=== PATIENT | male | born 1945 | race Caucasian/White ===

== ENCOUNTER → 2016-07-12 | Outpatient (CLI) | payer MEDICARE, BC ==
[~2016-07-12] MED LIST: ALDACTONE DPS25 MG PO; ASA CHILDREN'S81 MG PO; ATORVASTATIN CA40 MG PO; BRILINTA90 MG PO; CORDARONE DPS200 MG PO; COZAAR DPS25 MG PO; FLAGYL-DPS500 MG PO; FOLVITE-DPS1 MG PO; IMODIUM DPS2 MG PO; KLOR-CON M2020 ME1 PO; LASIX DPS80 MG PO; LIPITOR DPS40 MG PO; LOPRESSOR DPS50 MG PO; METOPROLOL TART25 MG PO; MIDODRINE HCL5 MG PO; NITROGLYCERIN0.4 MG SL; NITROSTAT0.4 MG SL; PROTONIX40 MG PO; THERA1 EACH PO; ZYLOPRIM-DPS100 MG PO
== END | disposition home or self-care (01) ==
LOC: THER.SSS 10:39 → EDSTATUS 10:43
DX: D64.9 Anemia, unspecified (principal)

== ENCOUNTER → 2016-07-26 | Outpatient (CLI) | payer MEDICARE, BC | END | disposition home or self-care (01) | LOC: THER.S 11:11 | DX: D64.9 Anemia, unspecified (principal); R31.9 Hematuria, unspecified ==

== ENCOUNTER → 2016-08-24 | Outpatient (CLI) | payer MEDICARE, BC | END | disposition home or self-care (01) | LOC: RAD.S 10:00 | DX: R22.9 Localized swelling, mass and lump, unspecified (principal); J90 Pleural effusion, not elsewhere classified; R91.8 Other nonspecific abnormal finding of lung field; I25.10 Atherosclerotic heart disease of native coronary artery without angina pectoris; I25.84 Coronary atherosclerosis due to calcified coronary lesion ==

== ENCOUNTER → 2016-08-25 | Outpatient (CLI) | payer MEDICARE, BC | END | disposition home or self-care (01) | LOC: RAD.S 10:00 → CARD 10:11 | DX: D50.9 Iron deficiency anemia, unspecified (principal); R91.1 Solitary pulmonary nodule ==

== ENCOUNTER 2016-09-24 09:01 | Inpatient (IN) | payer MEDICARE, BC ==
[~2016-09-24] VITALS: Ht 177.8 cm; Wt 95.4 kg
--- NOTE | ~2016-09-24 | ECH ---
Transthoracic Echocardiography Report (TTE) Demographics Patient Name TRICE SLAUGHTER Date of Study 09/27/2016 Patient Number [id number] Visit Number [id number] Date of 1945 Room Number 312 Accession Number [id number] Gender Male Age 71 year(s) Referring Joseline Vargas MD Vehicle Mechanic Roxanne Akers Physician King Dionte Hinds MD [facility] Physician Interpreting Mayco White MD Gambling Dealer Physician Supervising Ordering Physician King Dionte Hinds MD, MD/P Nurse Stress Laboratory Animal Care Veterinarian Conclusions Summary Technically adequate exam. The estimated left ventricular ejection fraction is 65%. The left atrium is mildly dilated by LA volume index measurement. Trivial tricuspid regurgitation by color Doppler. There is mild pulmonary hypertension. The pulmonary pressure (RVSP) is 45 mmHg. Trivial posterior pericardial effusion. Procedure Type of Study TTE procedure:Echo Complete SF. Procedure Date Date: 09/27/2016 Start: 10:26 Technical Quality: Adequate visualization Indications:Atrial fibrillation, Atrial Flutter, Syncope, Hypertension and Coronary artery disease. Additional Indications:History of stent Appropriate Use Criteria: 9 Height: 70 inches Weight: 220 pounds BSA: 2.17 m Rhythm: NSR HR: 82 bpm BP: 101/46 mmHg Allergies - No known allergies. M-Mode/2D Measurements LV Diastolic Dimension: 5.2 cm LV Systolic Dimension: 3.4 cm LV Septum Diastolic: 1.04 cm LV PW Diastolic: 0.9 cm AO Root Dimension: 3.55 cm Cardiac Output: 8.5 l/min LA Dimension: 5 cm Cardiac Index: 3.92 l/min*m RV Diastolic Dimension: 4.35 cm LA volume index: 36 ml/m Post Pericard Effusion: 0.5 cm LVOT: 2 cm LVOT VTI: 33 cm RV Base: 3.5 cm LV Stroke volume: 103.62 ml RV Mid: 2.1 cm LV Stroke volume index: 47.75 ml/m TAPSE: 3.5 cm TDI-S': 40 cm/s Doppler Measurements AV Peak Velocity: 1.77 m/s MV Peak E-Wave: 1.03 m/s AV Peak Gradient: 12.53 mmHg MV Peak A-Wave: 0.55 m/s AV Mean Gradient: 6.7 mmHg MV E/A Ratio: 1.87 LVOT Peak Velocity: 1.54 m/s AV Area (Continuity):2.66 cm MV Deceleration Time: 375 msec TR Velocity:3.18 m/s PV Peak Velocity: 1.99 m/s TR Gradient:40.45 mmHg PV Peak Gradient: 15.84 mmHg Estimated RAP:3 mmHg Estimated PASP: 43.45 mmHg Estimated RVSP: 43 mmHg A' Septal Velocity: 0.11 m/s E' Septal Velocity: 0.12 m/s A' Lateral Velocity: 0.13 m/s E' Lateral Velocity: 0.16 m/s RA Area: 10.68 cm Findings Left Ventricle Normal left ventricle size and function. Diastolic assessment reveals normal relaxation. Right Ventricle Normal right ventricle structure and function. Left Atrium The left atrium is mildly dilated by LA volume index measurement. Right Atrium Normal right atrial size. Mitral Valve Mild thickening of the mitral valve leaflets. Trivial mitral regurgitation by color Doppler. Aortic Valve The aortic valve is mildly sclerotic. Tricuspid Valve Normal tricuspid valve structure and function. Trivial tricuspid regurgitation by color Doppler. There is mild pulmonary hypertension. The pulmonary pressure (RVSP) is 45 mmHg. Pulmonic Valve The pulmonic valve is not well visualized. Mild pulmonic valve regurgitation by color Doppler. Pericardial Effusion Trivial posterior pericardial effusion. Miscellaneous Visualized portions of the aortic root and ascending aorta appear normal in size. Pleural Effusion No evidence of pleural effusion. Signature
--- NOTE | ~2016-09-24 | OR ---
ADMIT: 09/24/2016 RM/LOC: 312 [id number] [id number] [address] [facility] [address] [place] [phone] TRICE SLAUGHTER [address] [place] [address] Operative/Delivery Room Report SEX: M AGE: 71 : 1945 SURGERY DATE: 09/26/2016 SURGEON: Eddie Turcios MD PREOPERATIVE DIAGNOSIS: Upper gastrointestinal bleed. POSTOPERATIVE DIAGNOSIS: Bleeding esophageal varix. PROCEDURE: Esophagogastroduodenoscopy with band ligation of esophageal varices. ANESTHESIA: General. ESTIMATED BLOOD LOSS: Unknown, but extensive clot and old blood was evacuated from the stomach. DESCRIPTION OF PROCEDURE: The patient was taken to the operating room and placed supine on his OR table. General anesthesia was established with endotracheal intubation. The upper endoscope was advanced through the oropharynx into the esophagus without difficulty. There was blood in the esophagus. Scope was advanced to the stomach where there was a large quantity of blood and clot in the proximal stomach. The initial hour of the endoscopy was spent evacuating this in its entirety to get complete mucosal visualization of the stomach. The pylorus was intubated and the first and second portions of the duodenum appeared unremarkable. The scope was again withdrawn to the stomach. Inspection of the antrum, body, and fundus revealed no evidence for ulceration or gastric varices. The scope was withdrawn to the GE junction where the esophageal varix was noted and had an overlying ulceration with small amount of blood at the margin consistent with stigmata of recent bleed. Decision was made for rubber band ligation of this site. Instruments used for clot evacuation had been suction irrigation via the therapeutic endoscope as well as a Red Net evacuation of the clot. The scope was withdrawn and the band ligator applied to the scope. The scope was again advanced to the distal esophagus. The ulceration of the varix was identified, suctioned into the scope and rubber band ligation was performed. No bleeding was caused with firing of the band. The band was in good position below the ulceration. The scope was withdrawn and the procedure was terminated. The patient tolerated the procedure in critical condition and transferred to recovery. Eddie Turcios MD/ yamila JOB #: [id number] CC: Warren Trevizo, Attending Physician Warren Trevizo, Family Physician
--- NOTE | ~2016-09-24 | CO ---
ADMIT: 09/24/2016 RM/LOC: 312 [facility] MR#: [id number] [address] [address] TRICE SLAUGHTER [facility] [place] [address] Consultation SEX: M AGE: 71 : 1945 DATE OF CONSULTATION: 09/26/2016 ATTENDING PHYSICIAN: Warren Tervizo CONSULTING PHYSICIAN: Cody Triplett MD REASON FOR CONSULT: Narrow-complex tachycardia. HISTORY OF PRESENT ILLNESS: Mr. Slaughter is a 71-year-old gentleman with a history of coronary disease. He had a stent to his mid and distal right coronary artery right about a year ago in August 2015 for an acute coronary syndrome. He does not have any history of arrhythmias. He was hospitalized a couple days ago when he came to the hospital with a syncopal episode. Apparently, he was on his way to the bathroom when he passed out. Brought to the emergency room. He was mildly anemic. He was orthostatic. He had been having increasing confusion over the past 2 days. It sounds like he has had a recent diagnosis of multiple myeloma and has been receiving chemotherapy and it was thought that maybe his chemotherapy was contributing to some of his symptoms. He was pancytopenic. Today they were actually discussing the possibility of discharge, but he continued to be orthostatic and lightheaded. His hemoglobin at admission was 9.5, and this morning was down to 7.8, his platelet count was 10,000. He had a bloody stool. He was brought down for an EGD today. He was found to have esophageal varices and a significant amount of blood in his stomach. He underwent esophageal banding. Apparently he does have a history of GI bleeding. When he came back to the recovery area, he went into a wide-complex tachycardia. He was given low-dose metoprolol. There was no chest pain. He did not have palpitations. He may have been a little more lightheaded. I gave him metoprolol and his blood pressure did decrease transiently but then went back up. He continued to be tachycardic. Metoprolol was repeated. He was then given a dose of IV digoxin with no response. Review of the EKGs it appears that it is atrial flutter but currently despite all the interventions, he is running 170 beats a minute. PAST MEDICAL HISTORY: Illnesses Include hypertension, history of gastroesophageal reflux disease, proctitis, gout, he has had prostate cancer, more recently diagnosed with multiple myeloma and his coronary artery disease with previous stent to his right coronary artery. ALLERGIES: NO KNOWN MEDICAL ALLERGIES. HOME MEDICATIONS: Include: 1. Pantoprazole 40 daily. 2. Allopurinol 100 at bedtime. 3. Metoprolol 50 b.i.d. 4. Aspirin 325 daily. 5. Losartan 25 daily. 6. Atorvastatin 40 at bedtime. ADMIT: 09/24/2016 RM/LOC: 312 [facility] MR#: [id number] [address] [place] [phone] TRICE SLAUGHTER [address] [place] [address] Consultation SEX: M AGE: 71 : 1945 7. Nitrostat p.r.n. 8. Acyclovir 400 b.i.d. PAST SURGICAL HISTORY: Includes prostate surgery, inguinal hernia repair, and colon resection. FAMILY HISTORY: His mother had a stroke. There is no premature history of coronary disease. Apparently his father had a valve replacement. SOCIAL HISTORY: He is . Lives at home with his . He is retired. Previously he has admitted to routine alcohol use, but denies illicit drug use. REVIEW OF SYSTEMS: Unobtainable. PHYSICAL EXAMINATION: VITAL SIGNS: His blood pressure is currently 100/70 and O2 sats are 97% on room air. SKIN: Pale otherwise, mildly cool extremities. GENERAL: He is just waking up from anesthesia. He complains of mild dizziness. He answers my very simple questions but he is slow to respond. He is in the recovery area. EYES: Sclerae clear. No xanthelasmas. ENT: Oral mucosa is pink and moist. No jugular venous distention or carotid bruits. HEART: Tachycardic, sounds regular. I cannot appreciate any murmurs, rubs, or gallops. CHEST: Poor respiratory effort. I do not hear any specific areas of wheezes, rhonchi, or crackles. ABDOMEN: Mildly distended. Nontender to palpation. Bowel sounds do sound active. EXTREMITIES: Peripheral pulses palpable. No clubbing, cyanosis or edema. PSYCH: He is partially sedated. MUSCULOSKELETAL: No obvious bony abnormalities are noted. Could not assess gait. LABORATORY AND X-RAY DATA: Sodium is 137, potassium 3.7, creatinine 0.8, his glucose 246. INR is 1.44. White count 7.8, hemoglobin was 7.8 on the 3rd and was 9.4 this morning, white count 7.8, and platelet count 37,000. Chest x-ray showed normal heart size. No vascular congestion. A 12-lead EKG shows nonspecific intraventricular conduction delay. He was certainly in sinus during his hospitalization, now in tachycardia which I believe is atrial flutter. IMPRESSION: 1. Newly diagnosed atrial flutter and probably new onset. 2. Active gastrointestinal bleeding with esophageal varices. ADMIT: 09/24/2016 RM/LOC: 312 [facility] MR#: [id number] [facility] [address] [id number] LESLIEYING TRICE Allyson [address] [place] [address] Consultation SEX: M AGE: 71 : 1945 3. Multiple myeloma. 4. Coronary artery disease with previous stent to the right coronary artery. 5. History of alcohol abuse. RECOMMENDATIONS: So far, he has had little response to IV Lopressor. He is already given IV digoxin by the anesthesiologist. Just started a Cardizem drip. His blood pressure is marginal, currently 100/70. He remains lightheaded. I am going to give the Cardizem a little more time and if it is not effective, we will have to consider urgent cardioversion. He just finished an EGD showing diffuse blood and varices. There are certainly several factors contributing to his hypotension. Obviously he is not an anticoagulation candidate with his anemia and active bleeding. Cody Triplett MD/ yamila JOB #: [id number] CC: Warren Trevizo, Attending Physician Warren Trevizo, Family Physician
[~2016-09-24 09:01] MED LIST changes: -ALDACTONE DPS25 MG PO; -ATORVASTATIN CA40 MG PO; -CORDARONE DPS200 MG PO; -FLAGYL-DPS500 MG PO; -FOLVITE-DPS1 MG PO; -KLOR-CON M2020 ME1 PO; -LASIX DPS80 MG PO; -METOPROLOL TART25 MG PO; -MIDODRINE HCL5 MG PO
--- NOTE | 2016-09-27 07:54 | CO ---
ADMIT: 09/24/2016 RM/LOC: 312 [facility] MR#: [id number] [address] [address] NAVJOT SLAUGHTER [facility] [place] [address] Consultation SEX: M AGE: 71 : 1945 DATE OF CONSULTATION: 09/26/2016 ATTENDING PHYSICIAN: Warren Trevizo CONSULTING PHYSICIAN: Eddie Turcios MD HISTORY: This is a 71-year-old male seen in the ICU in consultation for Dr. Trevizo after episodes of hematemesis overnight. Navjot was admitted on September 24 with complaints of a syncopal episode at home. On initial admission, he did have evidence of pancytopenia, which was felt to be related to recent chemotherapy for multiple myeloma. His platelet count was 15,000 on admission and hemoglobin was 9.5. He has had some improvement in his orthostatic symptoms and was nearly discharged yesterday. He did however report a black and possibly bloody bowel movement yesterday. He was kept to monitor and indeed last night, then had an episode of hematemesis. He was transferred to the ICU. He has remained hemodynamically stable since that time. He did have another episode of bloody emesis with clot present this morning. He is receiving a second unit of packed red blood cells currently. He received platelets last night and his current platelet count is 40,000. He denies ever having a similar episode of bleeding. He does have history of alcoholic cirrhosis documented in the chart as well as esophageal varices documented in the chart. He is unaware of that. PAST MEDICAL HISTORY: 1. Multiple myeloma. 2. Chronic alcoholism with alcoholic cirrhosis. 3. Gout. 4. Hypertension. 5. Advanced colon polyps, requiring colectomy. 6. Prostate cancer. 7. Depression. CURRENT MEDICATIONS: Reviewed via the medication reconciliation. PAST SURGICAL HISTORY: Laparoscopic right colectomy, colonoscopy, and EGD remotely. SOCIAL HISTORY: Denies tobacco use. He does drink daily and has a long- standing history of that. REVIEW OF SYSTEMS: A 10-point review of systems is performed. Syncope, orthostatic hypotension, hematemesis, and bloody/black stool are documented above. The remainder of the 10-point review of systems is negative for recent change. FAMILY HISTORY: Noncontributory. PHYSICAL EXAMINATION: GENERAL: Navjot is alert, oriented, and in no acute distress currently. ADMIT: 09/24/2016 RM/LOC: 312 [facility] MR#: [id number] [address] [address] NAVJOT SLAUGHTER [address] [place] [address] Consultation SEX: M AGE: 71 : 1945 VITAL SIGNS: Stable. HEENT: Sclerae are pale. Pupils are equal and reactive. NECK: Supple. Trachea is midline. LUNGS: Clear bilaterally. HEART: Regular rate and rhythm without murmur. ABDOMEN: Soft, nontender without palpable mass. EXTREMITIES: Calves are soft bilaterally with no focal neurologic deficit. NEUROLOGIC: Cranial nerves are intact. LABORATORY STUDIES: INR of 1.44, total bilirubin of 1.8, AST of 66, ALT 72, white blood cell count of 7.8, hemoglobin of 9.4, and platelet count of 37. IMPRESSION: 1. Hematemesis with upper gastrointestinal bleed with history of alcoholic cirrhosis. 2. Thrombocytopenia, likely related to possibly the cirrhosis, but also recent treatment for multiple myeloma. 3. Coagulopathy related to cirrhosis. 4. Anemia related to acute blood loss on chronic anemia. PLAN: He is currently receiving proton pump inhibitor therapy in a drip form. Resuscitation with packed red blood cells and platelets has been performed. I did add FFP given his liver disease and an INR of 1.4. I did recommend proceeding urgently with esophagogastroduodenoscopy for evaluation of the etiology and possible therapeutic intervention. I discussed that if this is variceal bleeding that it can be extensive and life-threatening potentially. I did discuss trying to band in the identified areas of bleeding if it is variceal in nature or if there is stigmata of that being the recent source. I discussed other potential etiologies and their management as well. He understands these things and is in agreement with the plan. Eddie Turcios MD/ yamila JOB #: [id number] CC: Warren Trevizo, Attending Physician Warren Trevizo, Family Physician
--- NOTE | 2016-09-30 09:20 | ER ---
ADMIT: 09/24/2016 RM/LOC: 430 [facility] MR#: [id number] 2620 [facility] [address] [place] [phone] TRICE SLAUGHTER [address] [place] [address] Emergency Room Report SEX: M AGE: 71 : 1945 DATE: 09/24/2016 ADDENDUM: CHIEF COMPLAINT: Fall and hit head. HISTORY OF PRESENT ILLNESS: This is a 71-year-old male, who was on his way to the bathroom and had a syncopal episode. said he was unconscious right away, then brought him into the emergency room. When asking him questions, it sounds like he has been slightly confused for the last 2 days. He even has had episodes of slurred speech, but said she just did not know if it was confusion from the chemo or if there was something else that was going on. COURSE IN THE EMERGENCY ROOM: CBC, CMP, cardiac enzymes, troponin, chest x- ray, EKG, and PT/INR were done. Overall findings; his INR is 1.17, aPTT is 28.5. CMP, his electrolytes are normal, the abnormalities are his BUN is 25, his glucose is 318, total protein low at 5.2, albumin low at 2.4, AST is 67, GFR 67. Calcium corrected is 10.2. CK normal at 1.45. His MB is 4.3. Relative index is 3. Troponin is 0.059. CMP shows that WBC of 3.8, hemoglobin of 9.5, platelets of 15. EKG showed sinus rhythm at a rate of 77, slightly down slope at V4 through V6. This was over-read by Dr. Coughlin. Compared to previous EKGs, EKG is essentially unchanged. I did speak with both Dr. Roy and Dr. Trevizo regarding this patient. Due to the trauma, we are giving him 1 unit of platelets down here in the emergency room per Dr. Roy's order. I did speak with Dr. Trevizo, he will admit. IMPRESSION: 1. Pancytopenia. 2. Syncopal episode with elevated troponin. 3. Hyperglycemia. DISPOSITION: He is stable at admit. ANA Marr / Matthew Coughlin MD / yamila JOB #: [id number] CC: Warren Trevizo DO, Attending Physician Warren Trevizo DO, Family Physician
[2016-10-07] MEDS ORDERED: PROTONIX40 MG PO (18:30)
[2016-10-07] MEDS ORDERED: ZYLOPRIM-DPS100 MG PO (18:30)
[2016-10-07] MEDS ORDERED: METOPROLOL TART25 MG PO (18:30)
[2016-10-07] MEDS ORDERED: ALDACTONE DPS25 MG PO (18:31)
[2016-10-07] MEDS ORDERED: ASA CHILDREN'S81 MG PO (18:31)
[2016-10-07] MEDS ORDERED: ATORVASTATIN CA40 MG PO (18:31)
[2016-10-07] MEDS ORDERED: CORDARONE DPS200 MG PO (18:31)
[2016-10-07] MEDS ORDERED: KLOR-CON M2020 ME1 PO (18:32)
[2016-10-07] MEDS ORDERED: THERA1 EACH PO (18:32)
[2016-10-07] MEDS ORDERED: FOLVITE-DPS1 MG PO (18:32)
[2016-10-07] MEDS ORDERED: LASIX DPS80 MG PO (18:32)
--- NOTE | 2016-10-08 16:37 | CO ---
ADMIT: 09/26/2016 RM/LOC: 312 [facility] MR#: [id number] [address] [facility] [address] [place] [phone] TRICE SLAUGHTER [address] [place] [address] Consultation SEX: M AGE: 71 : 1945 DATE OF CONSULTATION: 09/24/2016 ATTENDING PHYSICIAN: Warren Trevizo CONSULTING PHYSICIAN: Julien Roy MD REASON FOR ONCOLOGY CONSULTATION: Severe pancytopenia. HISTORY OF PRESENT ILLNESS: Mr. Slaughter is a 71-year-old gentleman who sees my partner, Dr. Ford, for pancytopenia. He was enrolled in the clinical trial. He has received Velcade, Revlimid, and dexamethasone of 1 cycle. He is now admitted because of syncopal episode. He has a severe thrombocytopenia with 15. He did have a pre-existing thrombocytopenia of 77 before he starting the treatment. It looks like he has some sort of liver disease, where he has a pre-existing pancytopenia for long time, even dated back to 2013. 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 He now got admitted because of syncopal episode, does not know why he got these episodes, but he was orthostatic during the time of admission. When he had the syncopal episode, he hit is head. A CT scan of the head was done, there was no any bleeding, but his platelet counts were low, so therefore, the chances of intracanal bleeding was high. He has been transfused a unit of platelet. No nausea. No vomiting. No diarrhea. The patient was advised to stop aspirin and any other blood thinner due to the risks of bleeding, therefore Oncology was consulted for pancytopenia and further evaluation. PAST MEDICAL HISTORY: Chronic alcoholic. He drinks a 12 to 15 packs of beer every day for more than [address] scan shows liver cirrhosis, pancytopenia, MGUS. ALLERGIES: NO KNOWN DRUG ALLERGIES. SOCIAL HISTORY: He chews tobacco. He uses alcohol, 12 to 15 packs per day. As per the patient, he has lied Dr. Ford that he only takes 4 to 4 beers a day. In fact, his told me that had he takes 12 to 15 beers a day. FAMILY HISTORY: No history of cancer in the family. Some high blood pressure and diabetes. MEDICATIONS: Please review the medication list. REVIEW OF SYMPTOMS: GENERAL: Not in acute distress. CARDIOVASCULAR: No chest pain. RESPIRATORY: No shortness of breath. GASTROINTESTINAL: No nausea. No vomiting. No diarrhea. GENITOURINARY: No urgency. No frequency. 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 ENDOCRINOLOGY: No polyuria. No polydipsia. ADMIT: 09/26/2016 RM/LOC: 312 [facility] MR#: [id number] [address] [place] [phone] TRICE SLAUGHTER [address] [place] [address] Consultation SEX: M AGE: 71 : 1945 NEUROLOGY: Awake, alert, and oriented. SKIN: No rashes. INFECTION: No fever. NUTRITION: Adequate. PHYSICAL EXAMINATION: VITAL SIGNS: Temperature 97.7, pulse 79, respirations 18, and blood pressure 126/57. HEENT: Normocephalic and atraumatic. LUNGS: Clear. HEART: S1 and S2 heard. Regular rate and rhythm. ABDOMEN: Soft, nontender, and nondistended. Positive bowel sounds. EXTREMITIES: No edema. NEUROLOGIC: Awake, alert, and oriented x3. No focal neurological deficits. SKIN: No rashes. LYMPHADENOPATHY: No abnormal lymph node palpated. LABORATORY DATA: WBC 3.8, hemoglobin 9.5, and platelet count is 15. Chemistry: Creatinine is 1.1. Normal LFTs. His blood sugar is 318. CT scan of the head findings were noted. IMPRESSION AND RECOMMENDATIONS: Mr. Slaughter is a 71-year-old pleasant gentleman with a history of pancytopenia, alcoholism, and liver cirrhosis who was admitted due to syncopal episode and he hit his head, but the CT scan of the brain was negative for bleed. Platelet count was found to be 15. He had a chronic thrombocytopenia, probably his platelet count dropped from Revlimid. Will give him a unit of platelet transfusion. Monitor him very closely. No need of blood transfusion. Pancytopenia could be related to liver cirrhosis as well as Revlimid together. We will watch him closely. He will not be in a clinical trial probably from the side affects. His and himself does not want to be in clinical trial any more. No other symptoms. We will watch him closely. I have told the patient that we will give him transfusion, we will give him platelets. We will take his coagulation profile as well. If his hemoglobin falls below 7, we will transfuse PRBC. He has worked up for syncopal episode. Thank you for the consultation and opportunity in taking care of your patient. Julien Roy MD/ yamila JOB #: [id number] CC: Warren Trevizo, Attending Physician Warren Trevizo, Family Physician
--- NOTE | 2016-10-15 10:38 | CVR ---
ADMIT: 09/24/2016 RM/LOC: 312 [facility] MR#: [id number] [address] [id number] TRICE SLAUGHTER [facility] [place] [address] Cardioversion Report SEX: M AGE: 71 : 1945 DATE: 09/26/2016 PROCEDURE: Urgent cardioversion. INDICATION: Mr. Slaughter is a 71-year-old gentleman who has a history of coronary disease, but no arrhythmias. He was admitted with GI bleeding after a syncopal episode. He underwent EGD today showing esophageal varices and active bleeding. He came back to the recovery area. He went into, what appears to be atrial flutter with rapid ventricular response. He had more nausea. There was more confusion and he had labile and questionable blood pressure. They had tried metoprolol and digoxin before I arrived. He is on IV Cardizem drip. His heart rate persisted 130-170. I decided to proceed with urgent cardioversion. It was discussed with his . DESCRIPTION OF PROCEDURE: Informed consent was obtained. I discussed the risks and potential benefits. We placed defibrillator pads in the anterior and posterior position. The Anesthesia Department was already here and provided propofol for sedation under their monitoring. One synchronized cardioversion with 75 joules successfully restored sinus rhythm. Unfortunately, 1-2 minutes after the cardioversion, he reverted back to atrial flutter. RECOMMENDATIONS: Successful cardioversion with reversion back to atrial flutter. PLAN: Continue his Cardizem for now. If there is any further hemodynamic compromise, I will try amiodarone IV. Cody Triplett MD/ yamila JOB #: [id number] CC: Warren Trevizo, Attending Physician Warren Trevizo, Family Physician
--- NOTE | 2016-10-18 08:35 | HP ---
ADMIT: 09/24/2016 RM/LOC: 312 [facility] MR#: [id number] 2620 [facility] [address] [place] [id number] TRICE SLAUGHTER [address] [place], [place] [id number] History and Physical SEX: M AGE: 71 : 1945 DATE OF SERVICE: 09/26/2016 He was actually admitted OPO and is now being converted to full admission. HISTORY OF PRESENT ILLNESS: This is a 71-year-old male patient, who presented after experiencing a syncopal type event and closed head trauma. Thus, we felt was orthostatic in nature and we put him in the hospital for observation of his mental status and hydration. He was doing well. We had actually considered dismissing him home this afternoon, but he remained orthostatic and dizzy and had told the nurses earlier in the day that he had had a black and possibly bloody stool. As the day progressed today, he became increasingly dizzy and orthostatic and this evening, he had an episode of hematemesis and then blood clots in his emesis. Hemoglobin has fallen from 9.5 at admission to 8.4, now down to 7.8. He also had a platelet count on admission of 15,000 and this has come up to 40,000 with platelet transfusion. His significant history is that of a recent diagnosis multiple myeloma and chemotherapeutic intervention and associated steroids causing hyperglycemia. He has a history of alcohol use. Hypertension although we have been holding his blood pressure therapies since presentation. SOCIAL HISTORY: He is and again he does drink regularly, but states that he last used alcohol about a week ago. FAMILY HISTORY: Noncontributory. REVIEW OF SYSTEMS: Currently negative for chest pain. He did have a very slight elevation of troponin, but this has remained stable and not felt to be of cardiac significant event. PHYSICAL EXAMINATION: HEART: Regular. ADMIT: 09/24/2016 RM/LOC: 312 [facility] MR#: [id number] [address] [address] TRICE SLAUGHTER [facility] [place] [address] History and Physical SEX: M AGE: 71 : 1945 LUNGS: Clear. GENERAL: He is pale. He is slightly tachycardic at this time. EXTREMITIES: Reveal trace edema. IMPRESSION: Upper gastrointestinal bleed with thrombocytopenia, anemia, and possible esophageal varices based upon his history of alcohol use and prior CT scan revealing cirrhosis. PLAN: He is transferred to the intensive care unit. We are going to transfuse packed red cells and platelets. We will give him fluids and monitor him closely, and I have called and discussed this case with Dr. Turcios, who will plan to take him for upper GI endoscopy in the morning. Warren Trevizo DO/ yamila JOB #: [id number] CC: Warren Trevizo, Attending Physician Warren Trevizo, Family Physician
[2016-10-30] MEDS ORDERED: PROTONIX40 MG PO (13:04)
[2016-10-30] MEDS ORDERED: CORDARONE DPS200 MG PO (13:04)
[2016-10-30] MEDS ORDERED: ASA CHILDREN'S81 MG PO (13:04)
[2016-10-30] MEDS ORDERED: ZYLOPRIM-DPS100 MG PO (13:04)
[2016-10-30] MEDS ORDERED: FLAGYL-DPS500 MG PO (13:05)
[2016-10-30] MEDS ORDERED: FOLVITE-DPS1 MG PO (13:05)
[2016-10-30] MEDS ORDERED: THERA1 EACH PO (13:05)
[2016-10-30] MEDS ORDERED: MIDODRINE HCL5 MG PO (13:05)
--- NOTE | 2016-11-10 08:11 | DS ---
ADMIT: 09/27/2016 RM/LOC: 422 [facility] MR#: [id number] 2620 [facility] [address] [place] [id number] TRICE SLAUGHTER [address] [place] [address] General Discharge Summary SEX: M AGE: 71 : 1945 ADMISSION DATE: 09/27/2016 DISCHARGE DATE: 10/06/2016 REASON FOR HOSPITALIZATION: Syncopal event with closed head trauma and orthostasis. HISTORY: The patient originally presented with a syncopal type event and had fallen at home. We admitted him initially for assessment and monitoring. We noted that he had thrombocytopenia slight elevation of troponin, elevated blood sugar, and made plans to follow his cardiac enzymes, platelets, and hold his blood pressure therapies while on telemetry. We also asked Hematology Oncology to follow as they had been treating him for recently diagnosed myeloma. He had done relatively well over the first 24-48 hours, but remained orthostatic. We are making arrangements for his dismissal home on 09/25 when he went on to develop an another general weakness event and then vomited andrzej red blood. We followed his blood cell counts and transfused him accordingly and then asked Surgery to evaluate with suspicion of underlying alcoholic liver disease and possible esophageal varices. He was transferred to the intensive care unit and EGD was performed by Dr. Turcios. He was found to have esophageal varices and band ligation was performed. We monitored him, thereafter, supported him. He did have transitional episodes of hepatic encephalopathy and was started on lactulose. His myeloma was followed and managed by the oncologist and Cardiology was then consulted as he developed a new onset of atrial fibrillation. Not responding to IV Lopressor and IV digoxin. He was cardioverted successfully with 75 joules of energy on 09/26/2016. He was transfused red blood cells, fresh frozen plasma, and monitored closely. On 09/27, we began transitioning back to oral therapies and had very significant and andrzej discussions about his underlying liver disease implications, complications, and prognosis. We downgraded his status ultimately to telemetry status. I did put him on folate and thiamine. We monitored him with diuretic therapies instituted per the application administrator. He did have some hypokalemic events and we replaced his potassium. Changed him to oral Lasix and he was on Aldactone as well. Over the course of an extended hospital stay, his status stabilized and ultimately he was able to be dismissed to home. On 10/06, we dismissed his home and planned to have him return to the clinic on the Tuesday following for CBC, CMP, and made arrangements for him to follow up with [facility]. He was dismissed with final diagnosis of multiple myeloma; cirrhosis; esophageal varices with acute blood loss anemia; pancytopenia; hyperglycemia; hypokalemia; orthostatic hypotension; atrial flutter, status post cardioversion; edema; and diastolic heart failure. He was to follow up with ADMIT: 09/27/2016 RM/LOC: 422 [facility] MR#: [id number] [address] [place] [id number] TRICE SLAUGHTER [address] [place] [address] General Discharge Summary SEX: M AGE: 71 : 1945 NNADMI in 2 to 3 weeks. His dismissal medicines: 1. Aldactone 25 mg b.i.d. 2. Cordarone 200 mg b.i.d. 3. Folvite 1 mg p.o. daily. 4. Klor-Con 40 mEq q.i.d. 5. Lactulose 15 mL p.o. b.i.d. 6. Lasix 80 mg p.o. b.i.d. 7. Lipitor 40 mg at bedtime. 8. Lopressor 25 mg b.i.d. 9. Protonix 40 mg daily. 10.Therapeutic multivitamin one daily/ 11.Zyloprim 100 mg daily. Warren Trevizo DO/ yamila JOB #: [id number] CC: Warren Trevizo DO, Attending Physician Warren Trevizo DO, Family Physician
== END 2016-10-06 15:15 | disposition home or self-care (01) | DRG 432 ==
LOC: ER 09:01 → 4PCU 10:30 → 3ICU 10:30 → 4PCU 10:30 → 3ICU 09-25 23:41 → 4PCU 09-28 10:19 → 3ICU 09-28 10:19 → 4PCU 09-29 07:49 → 3ICU 10-21 14:16
PROVIDERS: ADMIT Internal Medicine
PROC: 30233R1 Transfusion of Nonautologous Platelets into Peripheral Vein, Percutaneous Approach (ICD-10-PCS; 2016-09-24)
PROC: 5A2204Z Restoration of Cardiac Rhythm, Single (ICD-10-PCS; principal; 2016-09-26)
PROC: 06L34CZ Occlusion of Esophageal Vein with Extraluminal Device, Percutaneous Endoscopic Approach (ICD-10-PCS; principal; 2016-09-26)
PROC: 30233N1 Transfusion of Nonautologous Red Blood Cells into Peripheral Vein, Percutaneous Approach (ICD-10-PCS; principal; 2016-09-26)
PROC: 30233K1 Transfusion of Nonautologous Frozen Plasma into Peripheral Vein, Percutaneous Approach (ICD-10-PCS; principal; 2016-09-26)
DX: K70.30 Alcoholic cirrhosis of liver without ascites (principal); I85.11 Secondary esophageal varices with bleeding; R57.1 Hypovolemic shock; D61.818 Other pancytopenia; E46 Unspecified protein-calorie malnutrition; C90.00 Multiple myeloma not having achieved remission; I48.92 Unspecified atrial flutter; I11.0 Hypertensive heart disease with heart failure; I50.30 Unspecified diastolic (congestive) heart failure; J98.11 Atelectasis; K56.7 Ileus, unspecified; R73.9 Hyperglycemia, unspecified; T38.0X5A Adverse effect of glucocorticoids and synthetic analogues, initial encounter; K62.7 Radiation proctitis; I80.8 Phlebitis and thrombophlebitis of other sites; E87.6 Hypokalemia; I95.1 Orthostatic hypotension; F10.20 Alcohol dependence, uncomplicated; F17.220 Nicotine dependence, chewing tobacco, uncomplicated; M10.9 Gout, unspecified; K21.9 Gastro-esophageal reflux disease without esophagitis; F32.9 Major depressive disorder, single episode, unspecified; I25.10 Atherosclerotic heart disease of native coronary artery without angina pectoris; Z95.5 Presence of coronary angioplasty implant and graft; Z85.46 Personal history of malignant neoplasm of prostate; Z86.010 Personal history of colon polyps; Z79.82 Long term (current) use of aspirin

== ENCOUNTER 2016-10-18 11:06 | Emergency (ER) | payer MEDICARE, BC ==
[~2016-10-18 11:06] MED LIST changes: +ALDACTONE DPS25 MG PO; +ATORVASTATIN CA40 MG PO; +CORDARONE DPS200 MG PO; +FOLVITE-DPS1 MG PO; +KLOR-CON M2020 ME1 PO; +LASIX DPS80 MG PO; +METOPROLOL TART25 MG PO
--- NOTE | 2016-10-28 16:41 | ER ---
ADMIT: 10/18/2016 RM/LOC: ER [facility] MR#: [id number] [address] [address] TRICE SLAUGHTER [address] [place] [address] Emergency Room Report SEX: M AGE: 71 : 1945 DATE: 10/18/2016 ADDENDUM: CHIEF COMPLAINT: Confusion. HISTORY OF PRESENT ILLNESS: This 71-year-old male, who was just recently hospitalized in the hospital. During his stay, he did receive lactulose for elevated ammonia levels, but was discontinued prior to disposition from the hospital. is concerned that those ammonia levels are elevating again and also concerned that he has not been eating or drinking much in the last couple days. COURSE IN EMERGENCY ROOM: CT of his head was done, is negative for any acute findings. His PT/INR are 12.8 and 1.22, his PTT is normal. CBC is normal except for a white count of 4.2, hemoglobin 10.6, platelets which are 40. CMP is normal except for his BUN is 57, creatinine is 1.8, his glucose is 179, GFR is 37. I did give him a liter of fluid for dehydration. Ammonia level was slightly elevated at 85. I did speak with Dr. Trevizo regarding this patient of high ammonia levels and dehydration, he is okay with the patient receiving a liter of fluids and discharging him home with lactulose 30 mL b.i.d. He will follow up with Dr. Trevizo this week. I did also speak with the family about some bradycardia while he was here in the emergency room. I am decreasing his metoprolol to 12.5 mg daily until they see Dr. Trevizo. CLINICAL IMPRESSION: 1. Elevated ammonia levels. 2. Dehydration. 3. Bradycardia secondary to beta-ruthann. ANA Marr / Tevin Dumont MD / modl JOB #: [id number] CC: Edison Lilly MD, Attending Physician Warren Trevizo DO, Family Physician
[2016-10-30] MEDS ORDERED: CORDARONE DPS200 MG PO (13:04)
[2016-10-30] MEDS ORDERED: PROTONIX40 MG PO (13:04)
[2016-10-30] MEDS ORDERED: ZYLOPRIM-DPS100 MG PO (13:04)
[2016-10-30] MEDS ORDERED: ASA CHILDREN'S81 MG PO (13:04)
[2016-10-30] MEDS ORDERED: THERA1 EACH PO (13:05)
[2016-10-30] MEDS ORDERED: FOLVITE-DPS1 MG PO (13:05)
[2016-10-30] MEDS ORDERED: MIDODRINE HCL5 MG PO (13:05)
[2016-10-30] MEDS ORDERED: FLAGYL-DPS500 MG PO (13:05)
== END 2016-10-18 12:15 | disposition home or self-care (01) ==
LOC: ER 11:06
DX: E72.20 Disorder of urea cycle metabolism, unspecified (principal); E86.0 Dehydration; R00.1 Bradycardia, unspecified; I10 Essential (primary) hypertension; F32.9 Major depressive disorder, single episode, unspecified; Z85.46 Personal history of malignant neoplasm of prostate; Z98.890 Other specified postprocedural states; Z79.82 Long term (current) use of aspirin; Z79.899 Other long term (current) drug therapy

== ENCOUNTER → 2017-01-05 | Outpatient (CLI) | payer MEDICARE, BC ==
[~2017-01-05] MED LIST changes: +FLAGYL-DPS500 MG PO; +MIDODRINE HCL5 MG PO
== END | disposition home or self-care (01) ==
LOC: RESC 12-29 15:09
DX: Z51.81 Encounter for therapeutic drug level monitoring (principal); Z79.899 Other long term (current) drug therapy